=== PATIENT | male | born 1995 ===

== ENCOUNTER 2023-03-06 20:40 | Emergency (ER) | payer BC, SELFPAY ==
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
[2023-03-06 20:51] VITALS: BP 131/80; PULSE 93; RESP 16; TEMP 37; O2SAT 97; BMI 27.3
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
[2023-03-06 21:16] VITALS: BP 129/79; PULSE 88; RESP 18; O2SAT 97
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
[2023-03-07] MEDS: Lidocaine 4 % Patch ADH..PATCH 1 PATCH TRANSDERMA (00:15)
[2023-03-07] MEDS: Ketorolac Tromethamine 15 MG/ML VIAL 30 MG IM (00:15)
[2023-03-07] MEDS: Diphth,Pertus(ACell),Tet Adult 0.5 ML SYRINGE IM (00:15)
--- NOTE | 2023-03-07 00:57 | PC.NURSE ---
Discharge instructions given and explained to pt no apparent distress aox4 all of pt's questions answered
== END 2023-03-07 00:44 | disposition home or self-care (01) ==
PROVIDERS: Emergency Provider Internal Medicine
DX: S06.0X0A Concussion without loss of consciousness, initial encounter (principal); S51.851A Open bite of right forearm, initial encounter; S00.91XA Abrasion of unspecified part of head, initial encounter; R51.9 Headache, unspecified; M54.2 Cervicalgia; Y04.2XXA Assault by strike against or bumped into by another person, initial encounter; Y93.9 Activity, unspecified; Y92.9 Unspecified place or not applicable; Y99.9 Unspecified external cause status; Z79.899 Other long term (current) drug therapy; Z23 Encounter for immunization
CPT/HCPCS: 70450; 72125; 90471; 90715; 96372; 99284; J1885